=== PATIENT | male | born 1995 | race Caucasian/White ===

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

== ENCOUNTER 2020-03-02 14:23 | Outpatient (CLI) | payer OTHER | END 2020-03-02 14:24 | disposition home or self-care (01) | LOC: COV 14:23 | PROVIDERS: ATTEND Family Medicine | DX: M79.10 Myalgia, unspecified site (principal); R53.83 Other fatigue; J02.9 Acute pharyngitis, unspecified; R09.81 Nasal congestion; Z20.828 Contact with and (suspected) exposure to other viral communicable diseases ==

== ENCOUNTER 2020-12-31 07:00 | Outpatient (CLI) | payer OTHER | END 2020-12-31 23:59 | disposition home or self-care (01) | LOC: COV 07:00 | PROVIDERS: ATTEND Otolaryngology | DX: Z01.812 Encounter for preprocedural laboratory examination (principal); Z20.822 Contact with and (suspected) exposure to COVID-19 ==

== ENCOUNTER 2021-03-04 08:00 | Outpatient (CLI) | payer OTHER | END 2021-03-04 23:59 | disposition home or self-care (01) | LOC: LAB.S 08:00 | PROVIDERS: ATTEND Physician Assistant Medical | DX: R07.0 Pain in throat (principal); Z20.822 Contact with and (suspected) exposure to COVID-19 ==